=== PATIENT | female | born 1955 | race Caucasian/White ===

== ENCOUNTER 2021-09-05 23:33 | Emergency (ER) | payer MEDICARE, OTHER ==
[~2021-09-05] VITALS: Ht 152.4 cm; Wt 79.8 kg
[~2021-09-05 23:33] MED LIST: ALPRAZOLAM0.5 MG PO; AMBIEN10 MG PO; AUGMENTIN 875-1 EACH PO; BENTYL20 MG PO; CARAFATE1 GM PO; CIPROFLOXACIN750 MG PO; CLARITIN10 MG PO; COZAAR100 MG PO; FLAGYL500 MG PO; HYDROCHLOROTHIA25 MG PO; K-TAB ER20 MEQ PO; LISINOPRIL-HCT1 EAC1 PO; MECLIZINE HCL25 MG PO; METOPROLOL TART25 MG PO; MOBIC15 MG PO; NEURONTIN300 MG PO; NORCO 5-325 TA1 EACH PO; PERCOCET 5-3251 EACH PO; PERCOCET 7.5-31 EACH PO; PRILOSEC20 MG PO; PROMETHAZINE HC25 M1 PO; TYLENOL EXTRA500 MG PO; TYLENOL325 MG PO; XANAX0.25 MG PO; ZOFRAN ODT8 MG PO; ZOLOFT50 MG PO
--- OUTSIDE RECORDS SUMMARY | 2021-09-05 23:36 | XMS ---
PreMlucille Notification: NEGIN THORPE [employer] Bl[employer] Events No recent Security Events currently on file CRITERIA MET - PDMP CARE PROVIDERS [facility] Internal Medicine 05/30/2019-Current PHONE: [phone] Mau has no Care Guidelines for this patient. EDaniel VISIT COUNT (12 MO.) 1 GALEN Farr TOTAL 1 NOTE: Visits indicate total known visits. ED/UCC VISIT TRACKING (12 MO.) 09/05/2021 23:33 GALEN Fuentes OR TYPE: Emergency COMPLAINT: - POSS HIGH BP INPATIENT VISIT TRACKING (12 MO.) No inpatient visits to display in this time frame [email or web address]
[2021-09-06] MEDS ORDERED: METOPROLOL SUCC50 MG PO (00:02)
[2021-09-06] MEDS ORDERED: CHILDREN'S ASPI81 MG PO (00:03)
[2021-09-06] MEDS ORDERED: ALDACTONE50 MG PO (00:06)
== END 2021-09-06 01:50 | disposition home or self-care (01) ==
LOC: ED 23:33
DX: G43.909 Migraine, unspecified, not intractable, without status migrainosus (principal); I10 Essential (primary) hypertension; Z86.73 Personal history of transient ischemic attack (TIA), and cerebral infarction without residual deficits; Z87.891 Personal history of nicotine dependence; M06.9 Rheumatoid arthritis, unspecified; Z79.899 Other long term (current) drug therapy; Z79.82 Long term (current) use of aspirin
CPT/HCPCS: 80053; 85025; 96374; 96375; 99283-25; J1200; J1885; J2765; J7030